=== PATIENT | male | born 1965 | race Caucasian/White ===

== ENCOUNTER 2023-12-15 06:49 | Emergency (ER) | payer MEDICAID, OTHER ==
[~2023-12-15] VITALS: Ht 165.1 cm; Wt 145.4 kg
[~2023-12-15 06:49] MED LIST: ASPI81TA40 PO; GABA-1181 PO; HYDR25TA2 PO; LISI-894 PO; METF-1211 PO; NITR0.4T52 SL; SIMV-261 PO
[2023-12-15 07:02] VITALS: TEMP 98.4
[2023-12-15] MEDS ORDERED: FLUO-341 PO (07:02)
[2023-12-15] MEDS ORDERED: PIOG15TA66 PO (07:02)
[2023-12-15] MEDS ORDERED: NPH,100I SQ (07:02)
[2023-12-15] MEDS ORDERED: METF-446 PO (07:02)
[2023-12-15] MEDS ORDERED: LIRA0.6P3 SQ (07:02)
[2023-12-15] MEDS ORDERED: LISI40TA9 PO (07:02)
[2023-12-15] MEDS ORDERED: GLIP5TAB15 PO (07:02)
[2023-12-15] MEDS ORDERED: ATOR20TA65 PO (07:02)
[2023-12-15] MEDS ORDERED: ASPI81TA39 PO (07:02)
[2023-12-15] MEDS: FLUORESCEIN SODIUM 1 MG STRIP OU ONE (07:33)
[2023-12-15] MEDS: ACETAMINOPHEN 500 MG TABLET PO ONE (07:34)
[2023-12-15] MEDS: PROPARACAINE HCL 0.5% 15 ML OPHTHALMIC SOLUTION OU ONE (07:34)
[2023-12-15] MEDS ORDERED: ACET-66 PO (07:51)
[2023-12-15 08:00] VITALS: BP 155/84; PULSE 90; RESP 16; O2SAT 96
[2023-12-15] MEDS: MINERAL OIL/PETROLATUM,WHITE PF 3.5 GM OPHTHALMIC OINTMENT OS ONE (08:05)
== END 2023-12-15 08:11 | disposition home or self-care (01) ==
LOC: EMS 06:49
DX: S05.02XA Injury of conjunctiva and corneal abrasion without foreign body, left eye, initial encounter (principal); E11.9 Type 2 diabetes mellitus without complications; E78.00 Pure hypercholesterolemia, unspecified; I10 Essential (primary) hypertension; Z98.890 Other specified postprocedural states; X58.XXXA Exposure to other specified factors, initial encounter; Y93.89 Activity, other specified; Y92.89 Other specified places as the place of occurrence of the external cause; Y99.8 Other external cause status
CPT/HCPCS: 82962; 99283